=== PATIENT | female | born 1940 | race Caucasian/White ===

== ENCOUNTER → 2025-01-08 09:04 | Outpatient (REF) | payer MEDICARE, BC, SELFPAY | LOC: HWRCS 09:04 | PROVIDERS: ATTENDING PHYSICIAN Internal Medicine Cardiovascular Disease; FAMILY PHYSICIAN Family Medicine | DX: R06.02 Shortness of breath (principal) | CPT/HCPCS: 93306 ==

== ENCOUNTER → 2025-01-15 10:41 | Outpatient (REF) | payer MEDICARE, BC, SELFPAY | LOC: HWRCS 10:41 | PROVIDERS: ATTENDING PHYSICIAN Internal Medicine Cardiovascular Disease; FAMILY PHYSICIAN Family Medicine | DX: R06.02 Shortness of breath (principal) | CPT/HCPCS: 78452; 93017; A9500; J2785 ==